=== PATIENT | male | born 1995 | race Hispanic/Latino ===

== ENCOUNTER 2024-03-09 08:36 | Emergency (ER) | payer SELFPAY ==
[~2024-03-09] VITALS: Ht 162.6 cm; Wt 72.5 kg
[2024-03-09 08:48] VITALS: BP 139/76
[2024-03-09] MEDS ORDERED: PREDNISONE20 MG PO (08:54)
[2024-03-09] MEDS ORDERED: VALACYCLOVIR HCL1 G1 PO (08:54)
[2024-03-09 09:00] VITALS: BP 132/77
[2024-03-09 09:15] VITALS: BP 142/80
== END 2024-03-09 09:17 | disposition home or self-care (01) | DRG 74 ==
LOC: ED 08:36
DX: G51.0 Bell's palsy (principal)